=== PATIENT | male | born 1995 | race Hispanic/Latino ===

== ENCOUNTER 2023-09-06 11:42 | Emergency (ER) | payer OTHER | END 2023-09-06 13:58 | LOC: CSHERS 11:42 | DX: S90.111A Contusion of right great toe without damage to nail, initial encounter (principal); F15.129 Other stimulant abuse with intoxication, unspecified; F17.290 Nicotine dependence, other tobacco product, uncomplicated; X58.XXXA Exposure to other specified factors, initial encounter ==